=== PATIENT | female | born 1985 | race Caucasian/White ===

== ENCOUNTER 2025-02-04 08:00 | Emergency (ER) | payer SELFPAY ==
[2025-02-04 08:36] VITALS: BP 126/87; PULSE 92; RESP 18; TEMP 36.8; O2SAT 100; BMI 29.0
--- NOTE | 2025-02-04 09:22 | XRR_ITS ---
PROCEDURE INFORMATION: Exam: XR Left Ribs with PA Chest Exam date and time: 02/04/2025 9:47 AM Age: 39 years old Clinical indication: Injury or trauma; Fall; Rib area, left side; Blunt trauma; Injury date: 1 week ago; Additional info: Pain TECHNIQUE: Imaging protocol: Radiologic exam of the left ribs with PA chest. Views: 3 views COMPARISON: No relevant prior studies available. FINDINGS: Lungs: Unremarkable. No consolidation. Pleural spaces: Unremarkable. No pleural effusion. No pneumothorax. Heart/Mediastinum: Unremarkable. No cardiomegaly. Bones/joints: Unremarkable. XR/XR ribs LT mn 3V w CXR1V [id number] IMPRESSION: No acute findings.
--- NOTE | 2025-02-04 09:37 | ECG_ITS ---
[facility] Test Date: 2025-02-04 Pat Name: Li Escobar Department: Room: Gender: Female Blood [employer]or Unit Assistant: : 1985 Requested By: Manuel Greenberg Order Number: [id number] Hiram MD: Lilly Lloyd M.D. Measurements Intervals [place] Rate: 76 P: 18 MT: 149 QRS: -2 QRSD: 88 T: 35 QT: 385 QTc: 434 Interpretive Statements SINUS RHYTHM LOW QRS VOLTAGE IN PRECORDIAL LEADS [QRS DEFLECTION < 1.0 mV IN CHEST LEADS] PATTERN CONSISTENT WITH PULMONARY DISEASE No previous ECG available for comparison Electronically Signed On 02-05-2025 06:28:29 CDT by Lilly Lloyd M.D. [email or web address]
[2025-02-04 10:03] VITALS: BP 118/85; PULSE 81; O2SAT 99
--- NOTE | 2025-02-04 10:06 | W.ED.GENADLT ---
HPI - General Adult General: Chief complaint: General Medical Stated complaint: fall,left side pain Time Seen by Provider: 02/04/25 08:02 History of Present Illness: 39-year-old female presents emergency room with a left rib pain. Patient slipped and fell yesterday she had a pair of pants that rolled up very high and she had her cell phone tucked in on her side inside of the waistband waistband is up at the level of her ribs essentially just below the breast line. She landed on it and has severe rib pain worse when she moves or takes a deep breath. She is not having hemoptysis. No fever sweats or chills. She also has some mild right ankle pain but she has been able to ambulate on it. Associated symptoms: Deny chest pain, dyspnea or rash Related Data Previous Rx's ?Medication ?Instructions ?Recorded diclofenac sodium 75 mg 75 mg PO Q12H PRN pain #20 tabs 02/04/25 tablet,delayed release tramadol 50 mg tablet 50 mg PO Q6H PRN pain #14 tabs 02/04/25 Allergies Allergy/AdvReac Type Severity Reaction Status Date / Time codeine Allergy ALGY-Difficulty Verified 02/04/25 08:41 Swallowing Review of Systems Const: Denies: fever(s) or chills Card: Denies: chest pain Resp: Denies: dyspnea GI: Denies: abdominal pain : Denies: dysuria, urinary frequency or urinary urgency Musc: Denies: neck pain or back pain Skin/Breast: Denies: rash Physical Exam Const: GENERAL APPEARANCE: cooperative ORIENTATION/CONSCIOUSNESS: Yes awake, Yes oriented to person, Yes oriented to place and Yes oriented to time HENMT: COMMON NORMALS: normocephalic, atraumatic and hearing grossly normal bilaterally HEAD & SCALP: normocephalic and atraumatic Chest: OTHER: Examination of the chest wall on the left there is no bruising no subcutaneous crepitus no obvious deformity pain with palpation at the axillary and anterior axillary lines. No sign of rash. Resp: COMMON NORMALS: normal respiratory effort, No retractions, No use of accessory muscles and clear to auscultation bilaterally AUSCULTATION: clear to auscultation bilaterally Cardio: COMMON NORMALS: regular rate, regular rhythm and No murmurs present (Cardio) RATE: regular rate RHYTHM: regular rhythm GI: COMMON NORMALS: Soft to palpation and No hepatosplenomegaly present AUSCULTATION: Yes normoactive bowel sounds PALPATION: Yes Soft to palpation, No Tenderness to palpation present (GI), No Guarding due to palpation present (GI) and Yes No hepatosplenomegaly present Extremity: COMMON NORMALS: normal to inspection, capillary refill normal, no clubbing, cyanosis or edema, no calf tenderness and no pedal edema Neuro: SENSORIUM/ORIENTATION: Yes oriented to person, Yes oriented to place and Yes oriented to time Skin: COMMON NORMALS: no rashes or lesions noted GENERAL SKIN EXAM: no rashes or lesions noted Course Vital Signs: Vital signs: Vital Signs Temperature 98.3 F 02/04/25 08:36 Pulse Rate 76 02/04/25 11:57 Respiratory Rate 16 02/04/25 11:57 Blood Pressure 120/84 02/04/25 11:57 Pulse Oximetry 99 02/04/25 11:57 Oxygen Delivery Me thod Room Air 02/04/25 10:[address] [facility] - General Adult Medical Decision Making Musculoskeletal pain after fall x-ray of the right ankle and the left ribs no acute fractures treat pain gave tramadol and diclofenac to use as needed follow-up as needed imaging reviewed and discussed with the patient. Labs also reviewed and discussed with patient. Lab Data 02/04/25 09:50 02/04/25 09:50 Radiology Impressions Ribs X-Ray 02/04/25 09:22 IMPRESSION: No acute findings. Ankle X-Ray 02/04/25 10:33 IMPRESSION: No acute findings. Laboratory Results WBC 4.76 10^3/uL (3.29-11.43) 02/04/25 09:50 RBC 4.50 10^6/uL (3.85-5.65) 02/04/25 09:50 Hgb 13.10 g/dL (11.27-16.99) 02/04/25 09:50 Hct 42.5 % (36-47) 02/04/25 09:50 MCV 94.4 fl (85-98) 02/04/25 09:50 MCH 29.1 pg (27-33) 02/04/25 09:50 MCHC 30.8 g/dL (30-55) 02/04/25 09:50 RDW 17.0 % (12.1-15.1) H 02/04/25 09:50 Plt Count 185 10^3/cmm (157-399) 02/04/25 09:50 MPV 10.9 fL (7.4-10.4) H 02/04/25 09:50 Neut % (Auto) 67.9 % 02/04/25 09:50 Lymph % (Auto) 22.7 % 02/04/25 09:50 [place] % (Auto) 6.3 % 02/04/25 09:50 Eos % (Auto) 1.9 % 02/04/25 09:50 Baso % (Auto) 0.8 % 02/04/25 09:50 Neut # (Auto) 3.23 10^3/uL (1.8-7.7) 02/04/25 09:50 Lymph # (Auto) 1.1 10^3/uL (0.8-4.8) 02/04/25 09:50 [place] # (Auto) 0.3 10^3/uL (0.2-0.9) 02/04/25 09:50 Eos # (Auto) 0.1 10^3/uL (0.0-0.8) 02/04/25 09:50 Baso # (Auto) 0.0 10^3/uL (0.0-0.1) 02/04/25 09:50 Nucleated RBC % (auto) 0 % 02/04/25 09:50 Nucleated RBCs # 0.0 /100WBC 02/04/25 09:50 Sodium 136 mmol/L (136-145) 02/04/25 09:50 Potassium 4.3 mmol/L (3.5-5.1) 02/04/25 09:50 Chloride 103 mmol/L (98-107) 02/04/25 09:50 Carbon Dioxide 21 mmol/L (22-29) L 02/04/25 09:50 Anion Gap 16.3 (5-19) 02/04/25 09:50 BUN 11 mg/dL (6-20) 02/04/25 09:50 Creatinine 0.6 mg/dL (0.5-0.9) 02/04/25 09:50 GFR Calculation 110.2 mL/min (90-130) 02/04/25 09:50 Glucose 88 mg/dL (65-115) 02/04/25 09:50 Calculated Osmolality 281 mOsm/kg (285-295) L 02/04/25 09:50 Calcium 8.8 mg/dL (8.5-10.5) 02/04/25 09:50 Total Bilirubin 0.3 mg/dL (0.15-1.2) 02/04/25 09:50 AST 20 U/L (0-32) 02/04/25 09:50 ALT 15 U/L (0-33) 02/04/25 09:50 Alkaline Phosphatase 86 U/L (35-105) 02/04/25 09:50 Total Protein 7.6 g/dL (6.6-8.7) 02/04/25 09:50 Albumin 3.8 g/dL (3.5-5.2) 02/04/25 09:50 Globulin 3.8 g/dL (1.3-4.6) 02/04/25 09:50 All radiology interpretation(s) finalized by discharge Discharge Plan Discharge Patient Disposition: Home Clinical Impression: Rib pain on left side, Sprain of ankle, right Condition: Stable Prescriptions: New diclofenac sodium 75 mg tablet,delayed release (DR/EC) 75 mg PO Q12H PRN (Reason: pain) Qty: 20 0RF tramadol 50 mg tablet 50 mg PO Q6H PRN (Reason: pain) Qty: 14 0RF Discharge Orders: Discharge ED (Routine); Ordered 02/04/25 Ordered By: Manuel Yi Referrals: Allan Mac [Primary Care Provider, [facility]] Discharge Diet: Usual diet Discharge Activity: Increase activity as tolerated Patient Instructions: Opioid Safety, Pain Management Activity Restrictions/Additional Instructions: Thank you for choosing [facility] for your healthcare needs today. It is very important that you follow up as instructed or that you return to the Emergency Department should you have concerns or if your condition changes or worsens in any way. You are seen in the emergency room after a fall. There is no evidence of fracture of the ribs on the left or in the right ankle. You will likely be sore for the next several days. Suspect he has some bruising to the ribs on the left. Stand Alone Forms: Work/School Release Print Language: Serbian Coding Level of Care Code ED [employer] for [employer]
[2025-02-04 10:19] LABS: Basophils % 0.8 %; Eosinophils # 0.1 10^3/uL (0.0-0.8); Eosinophils % 1.9 %; Hematocrit 42.5 % (36-47); Lymphocytes # 1.1 10^3/uL (0.8-4.8); Lymphocytes % 22.7 %; Mean Corpuscular HGB Conc 30.8 g/dL (30-55); Mean Corpuscular Hemoglobin 29.1 pg (27-33); Mean Corpuscular Volume 94.4 fl (85-98); Mean Platelet Volume 10.9 fL (7.4-10.4); Monocytes # 0.3 10^3/uL (0.2-0.9); Monocytes % 6.3 %; Neutrophils # 3.23 10^3/uL (1.8-7.7); Neutrophils % 67.9 %; Nucleated Red Blood Cells % 0 %; Platelet Count 185 10^3/cmm (157-399); White Blood Count 4.76 10^3/uL (3.29-11.43)
[2025-02-04 10:32] LABS: Alanine Aminotransferase 15 U/L (0-33); Albumin Level 3.8 g/dL (3.5-5.2); Alkaline Phosphatase 86 U/L (35-105); Aspartate Amino Transferase 20 U/L (0-32); Blood Urea Nitrogen 11 mg/dL (6-20); Calcium 8.8 mg/dL (8.5-10.5); Carbon Dioxide 21 mmol/L (22-29); Chloride 103 mmol/L (98-107); Creatinine Clr Calc Pharmacy 132.9235; Globulin 3.8 g/dL (1.3-4.6); Glomerular Filtration Rate 110.2 mL/min (90-130); Glucose 88 mg/dL (65-115); Osmolality Calculated 281 mOsm/kg (285-295); Sodium 136 mmol/L (136-145); Total Bilirubin 0.3 mg/dL (0.15-1.2); Total Protein 7.6 g/dL (6.6-8.7)
--- NOTE | 2025-02-04 10:33 | XRR_ITS ---
PROCEDURE INFORMATION: Exam: XR Right Ankle Exam date and time: 02/04/2025 10:51 AM Age: 39 years old Clinical indication: Injury or trauma; Fall; Blunt trauma; Ankle; Right TECHNIQUE: Imaging protocol: Radiologic exam of the right ankle. Views: 3 or more views. COMPARISON: No relevant prior studies available. FINDINGS: Bones/joints: Normal. Soft tissues: Normal. XR/XR ankle RT min 3V* [id number] IMPRESSION: No acute findings.
[2025-02-04 10:34] LABS: Anion Gap 16.3 (5-19); Potassium 4.3 mmol/L (3.5-5.1)
[2025-02-04] MEDS: ketorolac 30 mg/mL INJ IVP (11:10)
[2025-02-04 11:57] VITALS: BP 120/84; PULSE 76; RESP 16; O2SAT 99
== END 2025-02-04 11:59 | disposition home or self-care (01) ==
PROVIDERS: Emergency Provider Family Medicine; PCP Physician Assistant
DX: R07.81 Pleurodynia (principal); S93.401A Sprain of unspecified ligament of right ankle, initial encounter; W19.XXXA Unspecified fall, initial encounter
CPT/HCPCS: 36415; 71101; 73610; 80053; 85025; 93005; 96374; 99285; J1885

== ENCOUNTER → 2025-02-27 14:09 | Outpatient (BNVA) | payer SELFPAY | PROVIDERS: PCP Physician Assistant; Visit Provider Family Medicine | DX: S99.922A Unspecified injury of left foot, initial encounter (principal); W19.XXXA Unspecified fall, initial encounter | CPT/HCPCS: 73620 ==